=== PATIENT | male | born 1935 | race Caucasian/White ===

== ENCOUNTER 2018-01-13 21:21 | Emergency (ER) | payer OTHER ==
[~2018-01-13] VITALS: Ht 167.6 cm; Wt 70.5 kg
[2018-01-13 21:31] VITALS: BP 120/82
== END 2018-01-13 21:44 | disposition left against medical advice (07) ==
LOC: ED 21:21
DX: Z53.21 Procedure and treatment not carried out due to patient leaving prior to being seen by health care provider (principal)

== ENCOUNTER 2018-01-20 17:39 | Emergency (ER) | payer OTHER ==
[~2018-01-20] VITALS: Ht 167.6 cm; Wt 72.6 kg
[2018-01-20 17:45] VITALS: Ht 167.6 cm; Wt 72.6 kg
[2018-01-20 18:38] LABS: BASOPHIL % 0.8 % (0-2); PLATELET COUNT 349 x10^3mcL (130-400)
[2018-01-20 18:42] LABS: CALCIUM 8.8 mg/dL (8.5-10.1); CARBON DIOXIDE 25.1 mmol/L (21-32); CHLORIDE SERUM 105 mmol/L (98-107); CREATININE SERUM 1.1 mg/dL (0.7-1.3); GLUCOSE SERUM 105 mg/dL (74-106); POTASSIUM SERUM 3.6 mmol/L (3.5-5.1); SODIUM SERUM 141 mmol/L (136-145)
[2018-01-20 18:44] LABS: RED CELL DISTRIBUTION WIDTH 17.8 % (11.5-14.5)
[2018-01-20 18:47] LABS: ALBUMIN 3.7 g/dL (3.4-5.0); ALKALINE PHOSPHATASE 55 U/L (46-116); ALT/SGPT 24 U/L (16-63); AST/SGOT 21 U/L (15-37); BILIRUBIN TOTAL 0.43 mg/dL (0.20-1.00); TOTAL PROTEIN, SERUM 7.4 g/dL (6.4-8.2)
[2018-01-20 20:11] VITALS: BP 147/93
== END 2018-01-20 20:11 | disposition home or self-care (01) ==
LOC: ED 17:39
PROVIDERS: Emergency Medicine
DX: R42 Dizziness and giddiness (principal); I10 Essential (primary) hypertension
CPT/HCPCS: 36415; 83880; Q0092

== ENCOUNTER 2019-01-01 23:26 | Emergency (ER) | payer OTHER ==
[~2019-01-01] VITALS: Ht 167.6 cm; Wt 69.4 kg
[2019-01-01 23:34] VITALS: Ht 167.6 cm; Wt 69.4 kg
[2019-01-02 01:11] LABS: BASOPHIL % 0.9 % (0-2); PLATELET COUNT 373 x10^3mcL (130-400)
[2019-01-02 01:15] LABS: RED CELL DISTRIBUTION WIDTH 16.8 % (11.5-14.5)
[2019-01-02 01:22] LABS: CALCIUM 8.5 mg/dL (8.5-10.1); CARBON DIOXIDE 24.5 mmol/L (21-32); CHLORIDE SERUM 110 mmol/L (98-107); GLUCOSE SERUM 94 mg/dL (74-106); POTASSIUM SERUM 3.8 mmol/L (3.5-5.1); SODIUM SERUM 143 mmol/L (136-145)
[2019-01-02 01:27] LABS: ALBUMIN 3.5 g/dL (3.4-5.0); ALKALINE PHOSPHATASE 62 U/L (46-116); ALT/SGPT 21 U/L (16-63); AST/SGOT 14 U/L (15-37); BILIRUBIN TOTAL 0.29 mg/dL (0.20-1.00); TOTAL PROTEIN, SERUM 6.9 g/dL (6.4-8.2)
[2019-01-02 01:28] LABS: UA SPECIFIC GRAVITY 1.015 (1.005-1.035); microscopic required? YES; urine erythrocyte 1+ (NEGATIVE)
[2019-01-02 03:11] VITALS: BP 155/76
== END 2019-01-02 03:11 | disposition left against medical advice (07) ==
LOC: ED 23:26
PROVIDERS: Emergency Medicine
DX: R07.89 Other chest pain (principal); I10 Essential (primary) hypertension
CPT/HCPCS: 36415; 83880; J8597; Q0092